=== PATIENT | male | born 1980 | race Hispanic/Latino ===

== ENCOUNTER 2025-01-20 12:50 | Emergency (ER) | payer OTHER, SELFPAY ==
--- OUTSIDE RECORDS SUMMARY | 2009-09-10 05:15 | XMS_ITS | Continuity of Care Document ---
Author Organization [facility] Address [address] [place] [address] [place] [address] Phone Care Team Providers Care Policy Specialist Name Role Phone MauArun mancia Unavailable Unavailable Procedures Procedure Date Eye Exam, New Patient Advance Directives Directive Yes / No Effective Date File Name No Information Encounters Encounter Description Practice Location Reason(s) For Visit Diagnoses Date Provider Providers Copied on Encounter [facility], [address], [place], [place], [id number], [place] tel:[phone] [facility] No Information 0-201 0 Toan Arun. [address], [place], [address], [place]. tel:[phone] Family History Family Member Type Diagnosis Age At Onset No Information Payers Payer name Insurance type Covered libertarian ID Authoriza tion(s) No Information Social History Type Description Quantity Date Captured Comments Sex Male Smoking Status No Information Chief Complaint And Reason For Visit No Information Reason For Referral Reason For Referral No Information History Of Present Illness Encounter Date Complaint History Of Prese nt Illness No Information Functional Status Date Functional Assessmen t No Information Instructions Date Instruction Additional Infor mation No Information Assessments Type Assessment Date No Information Patient Care Teams Name Effective Dates (start - stop) Status Members No Information
--- OUTSIDE RECORDS SUMMARY | 2009-09-10 05:15 | XMS_ITS | Continuity of Care Document ---
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 [address] [facility] [address], [place], [address], [place]. tel:[phone] Family History Family Member Type Diagnosis Age At Onset No Information Payers Payer name Insurance type Covered alliance party ID Authoriza tion(s) No Information Social History [...]
--- NOTE | ~2025-01-20 | XR_ITS ---
Examination: XR chest 2V Clinical History: cp yesterday Comparison: None Technique: PA and Lateral Findings: Cardiomediastinal silhouette normal size and configuration. Lungs clear. No acute bony abnormality. IMPRESSION: 1. No acute cardiopulmonary findings. Reviewed, dictated and finalized at location R.
--- NOTE | 2025-01-20 12:51 | ECG_ITS ---
Test Date: 2025-01-20 12:57:54 Measurements Intervals [place] Rate: 99 P: 61 [place]: 174 QRS: 67 QRSD: 92 T: 22 QT: 305 QTc: 392 Interpretive Statements SINUS RHYTHM POSSIBLE RIGHT VENTRICULAR CONDUCTION DELAY [RSR (QR) IN V1/V2] SEPTAL MYOCARDIAL INFARCTION , PROBABLY OLD [40+ ms Q WAVE IN V1/V2] ABNORMAL ECG No previous ECG available for comparison Electronically Signed On 01-20-2025 13:08:01 CDT by Silverio Carrillo M.D.
[2025-01-20 12:52] VITALS: BP 181/100; PULSE 99; RESP 18; TEMP 36.9; O2SAT 100
[2025-01-20 13:10] LABS: Hematocrit 43.0 % (42.0-52.0); Hemoglobin 14.9 g/dL (14.0-18.0); Immature Granulocyte Percent A 0.2 % (0-0.5); Lymphocytes Absolute Auto 0.87 K/mm3 (0.9-3.2); Mean Corpuscular HGB Conc 34.7 g/dl (32-36); Mean Corpuscular Hemoglobin 30.2 pg (26-34); Mean Corpuscular Volume 87.2 fl (80-100); Nucleated Red Blood Cells Absolute Auto 0.000 K/mm3 (0.0-0.012); Nucleated Red Blood Cells Perc 0.0 % (0.0-0.2); Platelet Count Result 299 k/mm3 (150-375); Red Blood Count 4.93 M/mm3 (4.6-6.20); White Blood Count 4.9 K/mm3 (4.5-10.0)
[2025-01-20 13:22] LABS: Alanine Aminotransferase 41 U/L (6-50); Albumin Level 5.3 g/dL (3.5-5.1); Alkaline Phosphatase 90 U/L (38-126); Anion Gap 12 mmol/L (4-12); Aspartate Amino Transferase 55 U/L (17-59); Bilirubin,Total 0.7 mg/dL (0.2-1.3); Blood Urea Nitrogen 12 mg/dL (9-20); Calcium 10.3 mg/dL (8.4-10.2); Carbon Dioxide 25 mmol/L (22-30); Chloride 98 mmol/L (98-107); Estimated CRCL calculation 87 ml/min; Estimated Glomerular Filt Rate > 60; Glucose 137 mg/dL (65-110); Lipase 35 U/L (23-300); Potassium 4.5 mmol/L (3.4-5.0); Sodium 135 mmol/L (137-145); Total Protein 8.6 g/dL (6.3-8.2)
[2025-01-20 13:24] LABS: INR 1.1; Partial Thromboplastin Time 25.9 Seconds (22.3-36.8); Prothrombin Time 13.7 Seconds (11.1-14.7)
[2025-01-20 13:33] LABS: Troponin I < 0.012 ng/mL (0.000-0.034)
--- NOTE | 2025-01-20 15:24 | ED.GENADULT ---
HPI - General Adult General Chief complaint: Chest Pain Stated complaint: chest pain yesterday Time Seen by Provider: 01/20/25 15:11 History of Present Illness HPI narrative: 44-year-old male presents to the emergency department for evaluation for chest tightness. Patient reports he was at work last night had an episode of chest tightness that lasted approximately 20 minutes. Patient states that this happened while he was at rest. Patient states he did have some anxiety associated with chest pain. Patient states today he has had some minor episodes of chest tightness but nothing compared to the episode last night. Patient denies any significant past medical history. Patient denies any prior cardiac history. Patient states he is not a smoker. Patient is resting comfortably at time of evaluation. Related Data Home Medications ?Medication ?Instructions ?Recorded ?Confirmed ?Last Taken ?Type berberine BYMOUTH 06/17/23 Unknown History cinnamon bark 500 mg capsule 500 mg PO DAILY 06/17/23 Unknown History (Cinnamon) ezetimibe 10 mg tablet (Zetia) 10 mg PO DAILY 06/17/23 Unknown History metformin 1,000 mg tablet,extended 1,000 mg PO BID 06/17/23 Unknown History release 24hr (osmotic) omega-3s 360 pj-bgj-lrx-fish oil cap PO 06/17/23 Unknown History 1,200 mg-D3 1,000 unit capsule (Fish Oil-Vit D3) Allergies Allergy/AdvReac Type Severity Reaction Status Date / Time No Known Allergies Allergy Unverified 06/17/23 09:16 Review of Systems Review of Systems: All systems reviewed & are unremarkable except as noted in HPI and below PMFSH Surgical History Surgical History (Updated 06/17/23 @ 09:15 by Rosalino Feliz CMA) H/O wisdom tooth extraction Social History Social History (Updated 06/17/23 @ 09:15 by Rosalino Feliz CMA) Smoking status: Never smoker Alcohol intake: former Substance use: never Exam Narrative: APPEARANCE: Well appearing, no pain, no distress, well-nourished. HEAD: normocephalic, atraumatic. EYES: PERRLA/EOMI, conjunctivae clear. NOSE: Normal no drainage EARS:TMS clear with good light reflex. THROAT: Pharynx clear, no exudate. NECK: Supple. No adenopathy, no masses. RESPIRATORY: Airway patent, respirations nonlabored. Clear to auscultation bilaterally, no rales, rhonchi, wheezing. CARDIOVASCULAR: Regular rate and rhythm without murmurs rubs or gallops. ABDOMINAL: Soft, nontender, nondistended, normal bowel sounds MUSCULOSKELETAL: Moves all extremities. Strength/ROM intact, No edema, No calf tenderness. NEURO: Alert. Cranial nerves II through XII intact. Good gait. Good coordination SKIN: Warm, dry. Normal Color Course Vital Signs Vital signs: Vital Signs Temperature 98.5 F 01/20/25 12:52 Pulse Rate 99 01/20/25 12:52 Respiratory Rate 18 01/20/25 12:52 Blood Pressure 181/100 H 01/20/25 12:52 Pulse Oximetry 100 01/20/25 12:52 Oxygen Delivery Room Air 01/20/25 12:52 Temperature 98.5 F 01/20/25 12:52 Pulse Rate 95 01/20/25 17:34 Respiratory Rate 16 01/20/25 17:34 Blood Pressure 142/90 H 01/20/25 17:34 Pulse Oximetry 98 01/20/25 17:34 Oxygen Delivery Room Air 01/20/25 16:03 Medical Decision Making [facility] Narrative Medical decision making narrative: 44-year-old male presents to the emergency department for evaluation for bilateral chest tightness. Patient is afebrile with no leukocytosis and hemoglobin of 14.9. Patient's INR is 1.1 with no elevation in his D-dimer. Patient had negative serial troponins negative serial EKGs. On re-evaluation patient states he is feeling improved. Differential Diagnosis Differential Diagnosis: Pulmonary embolism, pneumonia, pneumothorax, gastritis, esophagitis, ACS Vital Signs Vital Signs: Vital Signs Temperature 98.5 F 01/20/25 12:52 Pulse Rate 99 01/20/25 12:52 Respiratory Rate 18 01/20/25 12:52 Blood Pressure 181/100 H 01/20/25 12:52 Pulse Oximetry 100 01/20/25 12:52 Oxygen Delivery Room Air 01/20/25 12:52 Temperature 98.5 F 01/20/25 12:52 Pulse Rate 95 01/20/25 17:34 Respiratory Rate 16 01/20/25 17:34 Blood Pressure 142/90 H 01/20/25 17:34 Pulse Oximetry 98 01/20/25 17:34 Oxygen Delivery Room Air 01/20/25 16:03 Lab Data Lab results reviewed: Yes I reviewed the patient's lab results. 01/20/25 13:03 01/20/25 13:03 Labs: Lab Results 01/20/25 01/20/25 Range/Units 13:03 16:13 WBC 4.9 (4.5-10.0) K/mm3 RBC 4.93 (4.6-6.20) M/mm3 Hgb 14.9 (14.0-18.0) g/dL Hct 43.0 (42.0-52.0) % MCV 87.2 (80-100) fl MCH 30.2 (26-34) pg MCHC 34.7 (32-36) g/dl RDW 12.9 (11.5-14.5) % Plt Count 299 (150-375) k/mm3 MPV 9.3 (7.4-10.4) fl Immature Gran % (Auto) 0.2 (0-0.5) % Neut % (Auto) 76.6 H (45.5-73.1) % Lymph % (Auto) 17.7 L (18.3-44.2) % [place] % (Auto) 4.9 (2.6-8.5) % Eos % (Auto) 0.2 (0-4.4) % Baso % (Auto) 0.4 (0.2-1.2) % Lymph # (Auto) 0.87 L (0.9-3.2) K/mm3 [place] # (Auto) 0.2 (0.1-0.6) K/mm3 Eos # (Auto) 0.0 (0-0.3) K/mm3 Baso # (Auto) 0.0 (0.0-0.1) K/mm3 Abs Immat Gran (auto) 0.01 (0.00-0.031) K/mm3 Absolute Neuts (auto) 3.8 (1.3-6.7) K/mm3 Absolute Nucleated RBC 0.000 (0.0-0.012) K/mm3 Nucleated RBC % 0.0 (0.0-0.2) % PT 13.7 (11.1-14.7) Seconds INR 1.1 APTT 25.9 (22.3-36.8) Seconds D-Dimer < 0.27 (<0.48) ug/mL Sodium 135 L (137-145) mmol/L Potassium 4.5 (3.4-5.0) mmol/L Chloride 98 (98-107) mmol/L Carbon Dioxide 25 (22-30) mmol/L Anion Gap 12 (4-12) mmol/L BUN 12 (9-20) mg/dL Creatinine 0.83 (0.7-1.3) mg/dL Estim Creat Clear Calc 87 ml/min Estimated GFR > 60 (59 - ) Glucose 137 H (65-110) mg/dL Calcium 10.3 H (8.4-10.2) mg/dL Total Bilirubin 0.7 (0.2-1.3) mg/dL AST 55 (17-59) U/L ALT 41 (6-50) U/L Alkaline Phosphatase 90 (38-126) U/L Troponin I < 0.012 < 0.012 (0.000-0.034) ng/mL Total Protein 8.6 H (6.3-8.2) g/dL Albumin 5.3 H (3.5-5.1) g/dL Lipase 35 (23-300) U/L Imaging Data Radiologist's impression: Impressions Chest X-Ray 01/20/25 13:55 IMPRESSION: 1. No acute cardiopulmonary findings. Discharge Plan Discharge Clinical Impression: Atypical chest pain Patient Disposition: Home Condition: Stable Instructions: Antibiotic Form, Chest Pain (ED) Additional Instructions: Have close follow-up with your primary care physician for additional outpatient cardiac testing. If you have any worsening symptoms then please call or return to the emergency department. Patient Language: Zambian Prescriptions: No Action metformin 1,000 mg tablet extended release 24 hr 1,000 mg PO BID ezetimibe [Zetia] 10 mg tablet 10 mg PO DAILY [id number]-[id number]-yqy-epa-fish oil-D3 [Fish Oil-Vit D3] 360 mg-1,200 mg -1,000 unit capsule PO cinnamon bark [Cinnamon] 500 mg capsule 500 mg PO DAILY berberine BYMOUTH empagliflozin 10 mg tablet 10 mg PO DAILY Qty: 90 0RF atorvastatin 10 mg tablet See Rx Instructions .ROUTE .COMPLEX Qty: 90 0RF Dose Instruction: Take 1 tablet by mouth once daily Rx Instructions: Take 1 tablet by mouth once daily Follow-up/Referrals: Rufina,Isael Gutierrez MD [Primary Care Provider, Unknown] Quality HEART score for chest pain patients History: slightly suspicious ECG: normal Age: > 45 and < 65 years Risk factors: 1 or 2 risk factors Troponin: < or = to 1x normal limit Heart score: 2
[2025-01-20] MEDS: ALBUTEROL SULFATE NEB 2.5 MG/3 ML INH 5 MG INHALATION (15:32)
[2025-01-20 15:35] VITALS: PULSE 82; RESP 16
[2025-01-20 15:42] VITALS: PULSE 88; RESP 17
--- NOTE | 2025-01-20 16:00 | ECG_ITS ---
Test Date: 2025-01-20 16:05:29 Measurements Intervals [place] Rate: 102 P: 38 [place]: 164 QRS: 25 QRSD: 89 T: 18 QT: 315 QTc: 412 Interpretive Statements SINUS TACHYCARDIA CONSIDER PREVIOUSSEPTAL MYOCARDIAL INFARCTION , ABNORMAL ECG Compared to ECG 01/20/2025 12:57:54 NO DIFFERENCE Electronically Signed On 01-21-2025 08:32:27 CDT by Levon Ritchie M.D.
[2025-01-20 16:03] VITALS: BP 150/93; PULSE 102; RESP 16; O2SAT 100
[2025-01-20] MEDS: ASPIRIN 81 MG CHEWABLE TABLET 324 MG PO (16:20)
[2025-01-20 16:41] LABS: Troponin I < 0.012 ng/mL (0.000-0.034)
[2025-01-20 17:34] VITALS: BP 142/90; PULSE 95; RESP 16; O2SAT 98
== END 2025-01-20 17:36 | disposition home or self-care (01) ==
PROVIDERS: Emergency Provider Emergency Medicine; PCP Internal Medicine
DX: R07.89 Other chest pain (principal); R94.31 Abnormal electrocardiogram [ECG] [EKG]; R00.0 Tachycardia, unspecified
CPT/HCPCS: 36415; 71046; 80053; 83690; 84484; 85025; 85380; 85610; 85730; 93005; 94640; 99284; A9270